=== PATIENT | male | born 1960 | race Caucasian/White ===

== ENCOUNTER 2017-07-02 14:47 | Inpatient (IN) | payer OTHER ==
--- NOTE | 2017-07-02 14:56 | CPEKG ---
Heart Rate: 88 RR Interval: 682 P-R Interval: 188 QRSD Interval: 94 QT Interval: 364 QTC Interval: 441 P [place]: 62 QRS [place]: -36 T Wave [place]: 57 EKG Severity - ABNORMAL ECG - EKG Impression: SINUS ARRHYTHMIA, RATE 73-101 EKG Impression: INFERIOR INFARCT, AGE INDETERMINATE EKG Impression: CONSIDER POSTERIOR WALL INVOLVEMENT Electronically Signed By: Anibal Tate 02-Jul-2017 15:08:19
[2017-07-02] MEDS ORDERED: fentaNYL 100 MCG/2 ML INJ ONE ×2 (15:00→15:28)
[2017-07-02] MEDS ORDERED: NS 1,000 ML IV ONE (15:00)
[2017-07-02] MEDS ORDERED: LIDOCAINE 1% 300 MG/30 ML SDV ONE (15:00)
[2017-07-02] MEDS ORDERED: IOPAMIDOL (ISOVUE-370) 150 ML BTL IV ONE ×2 (15:00→15:27)
[2017-07-02] MEDS ORDERED: MIDAZOLAM 2 MG/2 ML VIAL ONE ×2 (15:00→15:26)
[2017-07-02] MEDS ORDERED: HEPARIN 10,000 UNIT/10 ML MDV ONE (15:01)
[2017-07-02] MEDS ORDERED: BIVALIRUDIN 250 MG/5 ML VIAL IV ONE (15:01)
--- NOTE | 2017-07-02 15:06 | EDPHY ---
H & P Time Seen by Provider: 07/02/17 14:53 HPI/ROS: CHIEF COMPLAINT: Chest pain HISTORY OF PRESENT ILLNESS: 57-year-old for fracture with no previous medical history developed chest pain radiating to his left arm at 1:30 p.m. today while at work. Symptoms mild to moderate not associated with shortness of breath or diaphoresis or vomiting. 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 Not pleuritic or exertional. REVIEW OF SYSTEMS: Eye: no change in vision ENT: no sore throat Cardiac: HPI Pulmonary: no cough or SOB Abdomen: No abdominal pain or vomiting Musculoskeletal: Radiates a little bit to his back Skin: no rash Neuro: no headache, no weakness or numbness in extremities Constitutional: no fever : no urinary symptoms A comprehensive 10 point review of systems is otherwise negative aside from elements mentioned in the history of present illness. PAST MEDICAL HISTORY: Negative Social history: Chiropractor, no smoking General Appearance: Alert and conversant, cooperative. Eyes: No scleral icterus. ENT, Mouth: Normal mucous membranes. Respiratory: Normal respiratory effort, breath sounds equal, lungs are clear to auscultation. Cardiovascular: Regular rate and rhythm. Gastrointestinal: Abdomen is soft and non tender. Neurological: Alert, face symmetric, normal motor and sensory in extremities. Skin: Not diaphoretic Musculoskeletal: No peripheral edema. Psychiatric: Not agitated. Emergency Department course/MDM: Dr. Glover in emergency department, patient made a cardiac alert at 2:56 p.m.. He took oral aspirin at 1:45 p.m., at 324 mg. Directly to cardiac catheterization lab emergently without further diagnostics or therapeutics. Smoking Status: Never smoked Constitutional: Initial Vital Signs Temperature (C) 36.5 C 07/02/17 14:49 Heart Rate 100 07/02/17 14:49 Respiratory Rate 18 07/02/17 14:49 Blood Pressure 169/115 H 07/02/17 14:49 O2 Sat (%) 97 07/02/17 14:49 O2 Delivery Mode Room Air Allergies/Adverse Reactions: No Known Allergies Allergy (Unverified 08/10/14 09:55) Home Medications: Medication Instructions Recorded Tamsulosin HCl [Flomax] 0.4 mg PO DAILY #7 cap 08/10/14 oxyCODONE/APAP 5/325 [Percocet 1 tab PO Q6 #10 tab 08/10/14 5/325] Medical Decision Making - Diagnostics EKG Interpretation: 12-lead EKG interpreted by me; official reading is in trace master. My interpretation is sinus rhythm rate 88 with acute inferior myocardial infarction with reciprocal anterior changes. Differential Diagnosis: Differential diagnosis considered for chest pain including but not limited to myocardial ischemia, aortic dissection, pericarditis, pulmonary embolus, chest wall pain, pleural inflammation and pulmonary infectious causes. Critical Care Time: Critical care time spent by me, Dr. Tate, exclusively with the care of this patient was 15 minutes, exclusive of PA or NURSE INFORMATICS EDUCATOR time and exclusive of separate procedures. The organ system at risk was cardiovascular and I ordered EKG, cardiology consult, cardiac alert; to stabilize the patient and prevent worsening of the patient's condition. Departure - Departure Disposition: To OP Cath/Surgery Clinical Impression: Acute NH Qualifiers: Myocardial infarction ST status: ST elevation myocardial infarction Involved coronary artery: unspecified coronary artery Qualified Code(s): I21.3 - ST elevation (STEMI) myocardial infarction of unspecified site Condition: Serious Referrals: NONE *PRIMARY CARE P,. [Primary Care Provider] - As per Instructions
[2017-07-02 15:12] LABS: PLATELET COUNT 285 10^3/uL (150-400)
[2017-07-02] MEDS ORDERED: NS 1,000 ML IV SCH ×2 (15:15→16:45)
[2017-07-02] MEDS ORDERED: PRASUGREL HCL 10 MG TAB ONE (15:22)
[2017-07-02 15:28] LABS: INR 1.02 (0.83-1.16); PROTIME(PATIENT) 13.6 SEC (12.0-15.0)
--- NOTE | 2017-07-02 15:31 | PDDXCAT ---
Diagnostic Cath Note - . Date: 07/02/17 Pulverizer Tender: Roxanna Indication: other (Cardiac alert, acute anterior MT. ) - Procedure Access: right groin Procedure: left heart catheterization, left ventriculogram - Materials Left Heart Cath size: 6F Left Heart Cath materials: standard multipack (JL4, JR4, pigtail), other (See Intervention comments...) - Findings-Left Heart Catheterization LM: It has a kink on the inferior side maximal luminal narrowing approx 30% best visualized in an MAURITANIAN projection. The left coronary lumen is approx 6mm in size. LAD: 6mm in size. It is also abnormally large with multiple luminal irregularities consistent with underlying atherosceloris. Maximal luminal stenosis is approx 30%. LCX: 4mm in size proximately. It gives rise to 3 small obstuse marginal branches , all of which are diseased at the ostial takeoff from the LCX. The LCX is 100% occluded with BINTA 0 flow. RCA: It is large and patulent and dominant gibing rise to posterior descending artery and PLV branch. There is evidence of right to left collaterals to the left circumflex vessel. EDP: 17mmHg. LVEF: 40% with lateral, distal, and anterior wall apical hypokinesis. On the LV gram there is no significant MR. There appears to be mild mitral valve prolapse which could be related to papillary muscle dysfunction. Complications: None. Estimated blood loss: <50ml Closure method: manual pressure Assessment: The patient presented with an inferior and true posterior STEMI involving a large left circumflex proximal to the main obtuse marginals. The patient was treated with acute infarct angioplasty and stent implantation, with IV Angioma and oral Effient bolus. A single dose of IV lopressor was temoporally related to progression of LAFB to LBBB. further beta blockers will have to be used cautiously if at all. Plan: Dual antiplatelet therapy with Aspirin 325mg for the first month followed by Aspirin 81mg along with Plavix 75mg daily should be continued for at least 1 year following drug eluting stent implantation. No elective surgery for the first 3 months. Decisions to stop dual antiplatelet therapy before 1 year should involve our office at [facility], . The patient will need to be treated with OMAR inhibitors, beta blockers will be used with caution given reno-sparks conduction system disease and left bundle branch block. Intervention: The patient has reno-sparks vessel coronary artery disease with 100% obstruction of the left circumflex with BINTA III flow. A 6 Egyptian EBU 3.75 was used for guide catheter support. An Intuition 0.014 wire was advanced across the lesion in the circumflex under direct fluoroscopic and angiographic guidance. I ballooned the LCX lesion with an Emerge 2.0 x 12mm balloon. Maximal pressure was 6ATM. This reestablished flow in the left circumflex. A Synergy 4.0mm x 8mm drug eluting stent was placed just proximal to a bifurcation of 2 large OM branches. An NC Emerge 4.5mm x 8mm [employer] balloon was used for post dilation. Maximal pressure was 14ATM. BINTA III flow was established distally with no evidence of dissection or significant residual thrombus. 0% residual stenosis post stent placement. Patient Problems: Problems Problem Status Onset Acute [place] Acute
[2017-07-02] MEDS ORDERED: ATROPINE SULFATE 1 MG/10 ML SYR ONE (15:32)
--- NOTE | 2017-07-02 15:33 | PDCONSULT ---
Corporate Strategy Intern Note: CC: chest pains HPI: Patient is a 57 y/o male with fairly unremarkable past medical/cardiovascular history (no CAD, HTN, HLP, or DM), who presented to ER with complaints of chest pains. Symptoms began about 13:00 today, at work, and did not resolve. Given ongoing, progressive discomfort, the patient proceeded to the ER. In the ER, an ECG was performed with ST elevation noted to the inferior leads. Mild nausea was noted. No zach diaphoresis. No PND or orthopnea. Mild dyspnea was noted. No fevers or chills have been noted. No symptoms similar in the past. ASA therapy was taken about 1330 today. Mild radiation to the left posterior arm was also noted. ROS: 12 point review of systems was unremarkable PMHx: No CAD, HTN, HLP, or DM noted PSHx: left shoulder surgery NKDA No outpatient prescribed medications vitals from ER with tachycardia (100 bpm) and hypertension (169/115 mm Hg). RR was 18 with sats on room air at 97%. chest pains were 5/10 at the time of assessment. GEN: diaphoretic with mild pallor SKIN: no rash, no erythema HEENT: NCAT with PERRLA Neck: no JVD noted LUNGS: grossly CTA bilaterally. No crackles noted COR: Tachycardia with regular rhythm. S4 was noted ABD: soft EXT: no edema, 2+ DP/PT/RAD pulses Neuro: no focal deficits were noted Labs: pending ECG: ST elevation to the inferior leads was noted Assessment: Patient is a 57 y/o male with chest pains and ECG consistent with acute inferior myocardial infarction. Plan: Patient was taken urgently to the cardiac laboratory clerk. Risks were discussed. Dr. Johan Mcknight is interventional back up.
[2017-07-02] MEDS ORDERED: NITROGLYCERIN 1,500 MCG/15 ML VIAL MISC ONE (15:38)
[2017-07-02] MEDS ORDERED: FAMOTIDINE 20 MG/NACL/50 ML BAG IV ONE (15:41)
[2017-07-02] MEDS ORDERED: METOPROLOL TARTRATE 5 MG/5 ML INJ ONE (15:53)
--- NOTE | 2017-07-02 15:53 | PDDXCAT ---
Diagnostic Cath Note - . Date: 07/02/17 Demurrage Man: Adalberto Indication: other (ST elevation on ECG in the ER with ongoing chest pains.) - Procedure Access: right groin Procedure: left heart catheterization, coronary angiography - Materials Left Heart Cath size: 6F Left Heart Cath materials: standard multipack (JL4, JR4, pigtail) - Findings-Left Heart Catheterization LM: short (non selective injection) without appreciation of calcification to the left main. The JL4 was likely too long for the patient's anatomy, but visualization of the LM, LAD, and LCX system was noted. LAD: Medium diameter vessel with two principal diagonals noted. Minor luminal irregularities were noted thoughout the LAD system, but no critical stenosis was appreciated. LCX: There was 100% occlusion in the mid portion of the LCX, right after an obtuse marginal vessel. RCA: Large, dominant vessel with supply to the PDA and DYAN vessels. Right to left collaterals to the distal LCX system was noted. EDP: not performed by diagnostic utilization management nurse LVEF: not performed by diagnostic utilization management nurse Wall motion: not performed by diagnostic utilization management nurse Complications: none Assessment: 57 y/o male with AMI to the LCX vessel. Given the identification of this vessel as the culprit vessel, I had interventional cardiology (Dr. Johan Mcknight) proceed with PCI to the LCX prior to LV gram to minimize contrast use in the acute setting. Plan: PCI to the mid LCX Intervention: PCI to the LCX (mid) Patient Problems: Problems Problem Status Onset Acute [place] Acute
[2017-07-02] MEDS ORDERED: TEMAZEPAM 15 MG CAP PO PRN (16:34)
[2017-07-02] MEDS ORDERED: PRASUGREL HCL 10 MG TAB PO ONE (16:34)
[2017-07-02] MEDS ORDERED: ATROPINE SULFATE 1 MG/10 ML SYR IVP PRN (16:34)
[2017-07-02] MEDS ORDERED: OXYCODONE/APAP 5/325 TAB PO PRN (16:34)
[2017-07-02] MEDS ORDERED: ONDANSETRON 4 MG/2 ML VIAL IVP PRN (16:34)
[2017-07-02] MEDS ORDERED: NITROGLYCERIN 0.4 MG BTL SL PRN (16:34)
[2017-07-02] MEDS ORDERED: LORazepam 2 MG/ML INJ IVP PRN (16:34)
[2017-07-02] MEDS ORDERED: HYDROCODONE/APAP 5/325 TAB PO PRN (16:34)
[2017-07-02 18:06] LABS: CREATINE KINASE 378 IU/L (0-224)
--- NOTE | 2017-07-02 19:27 | CPEKG ---
Heart Rate: 77 RR Interval: 779 P-R Interval: 204 QRSD Interval: 156 QT Interval: 456 QTC Interval: 517 P [place]: 60 QRS [place]: -36 T Wave [place]: 153 EKG Severity - ABNORMAL ECG - EKG Impression: SINUS RHYTHM EKG Impression: LEFT BUNDLE BRANCH BLOCK Electronically Signed By: Travis Iverson 03-Jul-2017 06:40:02
--- NOTE | 2017-07-02 19:43 | ASMTCMCOM ---
CM Note CM Note Notes: Patient presented to the ED through triage; patient was driven by his chief information security officer, Suad, after he reported chest pain. Patient emergently went to laborer landscape after EKG showed acute inferior IL. Patient's , Vandana ([phone]) was contacted and met at the ED entrance, and provided information, updates and emotional support until her daughter Saman ([phone]) and her fmaily were able to arrive. 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 Exact needs unknown, CM to follow. Date Signed: 07/02/2017 07:42 PM Electronically Signed By:Chen Munson RN
[2017-07-02 20:37] LABS: CREATINE KINASE 785 IU/L (0-224)
[2017-07-03 00:03] LABS: CREATINE KINASE 1005 IU/L (0-224)
[2017-07-03 02:21] LABS: CREATINE KINASE 941 IU/L (0-224)
[2017-07-03 05:40] LABS: PLATELET COUNT 222 10^3/uL (150-400)
--- NOTE | 2017-07-03 08:40 | CPEKG ---
Heart Rate: 64 RR Interval: 938 P-R Interval: 200 QRSD Interval: 152 QT Interval: 476 QTC Interval: 491 P [place]: 50 QRS [place]: -35 T Wave [place]: 195 EKG Severity - ABNORMAL ECG - EKG Impression: SINUS RHYTHM EKG Impression: LEFT BUNDLE BRANCH BLOCK Electronically Signed By: Travis Iverson 03-Jul-2017 16:18:26
[2017-07-03] MEDS ORDERED: ATORVASTATIN CALCIUM 40 MG TAB PO SCH (09:00)
[2017-07-03] MEDS: PRASUGREL HCL 10 MG TAB PO SCH (10:48)
[2017-07-03] MEDS: ASPIRIN EC 325 MG TAB PO SCH (10:48)
[2017-07-03] MEDS: LISINOPRIL 5 MG TAB PO SCH (10:48)
[2017-07-03 10:54] LABS: CREATINE KINASE 578 IU/L (0-224)
[2017-07-03] MEDS: ROSUVASTATIN CALCIUM 20 MG TAB PO SCH (11:32)
--- NOTE | 2017-07-03 11:54 | PDCARPN ---
Cardiology Progress Note Chief Complaint: No cardiovascular complaints today. No groin tenderness. Multiple family members were present with the patient today. Assessment/Plan: Assessment: 07-03-17 Patient with PCI to LCX occlusion yesterday. Suppression of the LVEF to 40% was also noted. Today, the patient is doing well. No cardiovascular complaints - no chest pains or pressure. No groin tenderness appreciated. Telemetry with PVCs overnight per nursing staff. Therapy on Effient was started post intervention. Peak troponin to about 30 with reduction as of this morning to about 9. 07-02-17 Patient is a 57 y/o male with fairly unremarkable past medical/cardiovascular history (no CAD, HTN, HLP, or DM), who presented to ER with complaints of chest pains. Symptoms began about 13:00 today, at work, and did not resolve. Given ongoing, progressive discomfort, the patient proceeded to the ER. In the ER, an ECG was performed with ST elevation noted to the inferior leads. Mild nausea was noted. No zach diaphoresis. No PND or orthopnea. Mild dyspnea was noted. No fevers or chills have been noted. No symptoms similar in the past. ASA therapy was taken about 1330 today. Mild radiation to the left posterior arm was also noted. Plan: (1) Transfer patient to PCU floor for ongoing telemetry monitoring (2) Would arrange for echocardiogram tomorrow (3) Continue therapy on ASA and Effient for post stent period (one year with lifelong ASA therapy) (4) Statins for HLP elevation that was noted - there has been a switch from Lipitor to Crestor (5) Issues with heart rate suppression and BBB pattern were noted after use of beta blockers jakob-infarction yesterday, and concerns about reintroduction of this therapy (6) ACEi should continue given the suppression of LVEF that has been noted (7) Cardiac rehab to be introduced (8) Will follow this patient overnight with pending discharge in the morning Subjective: No cardiovascular complaints Reviewed/Discussed With: family, multidisciplinary team Objective: Vital Signs (8 Hrs) Temp Pulse Resp BP Pulse Ox 07/03/17 10:48 127/90 H 07/03/17 10:00 88 19 127/90 H 95 07/03/17 08:00 36.7 C 75 10 L 122/84 H 95 07/03/17 06:00 68 18 112/74 94 07/03/17 05:00 65 19 110/70 95 07/03/17 04:00 37.6 C 82 16 118/77 96 Intake/Output (24 Hrs) 07/02/17 07/03/17 07/04/17 05:59 05:59 05:59 Intake Total 2262 Output Total 377 Balance 1885 Intake: Oral (ml) 900 IV Intake (ml) 500 IV Infused (ml) 862 Ns 1,000 ml @ 100 mls/hr 862 IV CONT CHANDLER Rx#: [id number] Output: Urine (ml) 377 Toilet 2 Urinal 375 Other: Weight 84.368 kg Intake Quantity Yes Sufficient Result Diagrams: 07/03/17 05:30 07/03/17 05:30 Cardiac Labs: Cardiac Lab Results (72 Hrs) 07/03/17 07/03/17 07/02/17 09:45 01:35 23:00 CK-MB (CK-2) Fraction 43.10 H 81.40 H 90.90 H Troponin I 9.570 H 26.100 H 30.200 H 07/02/17 07/02/17 19:43 17:00 CK-MB (CK-2) Fraction 64.10 H 22.30 H Troponin I 21.400 H 2.720 H Telemetry: sinus rhythm Echocardiogram: pending tomorrow - Physical Exam Constitutional: WDWN, healthy appearing, no apparent distress Eyes: PERRL, EOMI Ears, Nose, Mouth, Throat: moist mucous membranes Cardiovascular: regular rate and rhythm, no murmurs, no rubs Peripheral Pulses: 2+: dorsalis-pedis (R), dorsalis-pedis (L) Respiratory: clear to auscultate bilat, no crackles, no wheezes Gastrointestinal: normoactive bowel sounds Skin: no rashes, no edema Musculoskeletal: no muscular tenderness Neurologic: AAOx3, CN II-XII grossly intact Psychiatric: cooperative, interactive, following commands ICD10 Worksheet Patient Problems: Problems Problem Status Onset Acute [place] Acute
--- NOTE | 2017-07-03 16:53 | ECHO ---
[email or web address] [address] [address] Main: [phone] Fax: Transthoracic Echocardiogram Name: CORIN HECTOR MR#: [id number] Study Date: 07/03/2017 Study Time: 11:54 AM Date of : 1960 Age: 57 year(s) Height: 177.8 cm (70 in.) Weight: 84.37 kg (186 lb.) BSA: 2.02 m2 Gender: Male Examination: Echo Indication: Post CO, Stent Image Quality: Contrast: Requested by: Horace Glover BP: 135 mmHg/89 mmHg Heart Rate: Rhythm: Indication: Post CO, Stent Procedure Staff Coat Examiner: Patricio Haro Reading Physician: Horace Glover Requesting Provider: Conclusions: Normal size left ventricle. Low normal left ventricular systolic function. EF is 67 %. There is subtle basilar to mid inferolateral hypokinesis.. Normal size right ventricle. The left atrium is normal in size. The right atrium is normal in size. The mitral valve is normal in appearance and function. The aortic valve is tri-leaflet and functions normally. The tricuspid valve is normal in appearance and function. The pulmonic valve is normal in appearance and function. Measurements: Chambers Valvular Assessment AV/MV Valvular Assessment TV/PV Normal Normal Normal Name Value Range Name Value Range Name Value Range Ao Madelin (MM): 3.5 cm (2.2 cm-3.7 AV Vmax: 1.53 m/s (1 m/s-1.7 PV Vmax: 1.13 m/s (0.6 m/s-0.9 cm) m/s) m/s) IVSd (2D): 1.0 cm (0.6 cm-1.1 AV maxP mmHg ( - ) PV PGmax: 5 mmHg ( - ) cm) LVOT Vmax: 0.65 m/s (0.7 m/s-1.1 LVDd (2D): 5.8 cm (4.2 cm-5.9 m/s) cm) MV E Vmax: 0.43 m/s ( - ) LVDs (2D): 3.6 cm (2.1 cm-4 MV A Vmax: 0.65 m/s ( - ) cm) MV E/A: 0.66 ( - ) LVPWd (2D): 1.1 cm (0.6 cm-1 cm) LVEF (2D): 67 (>=54 %) Continued Measurements: Chambers Valvular Assessment AV/MV Patient: CORIN HECTOR Study Date: 07/03/2017 Page 1 of 2 11:54 AM Name Value Name Value LADs Lon.6 cm MV E/E' Septal: 8.20 LA Area: 15.6 cm2 MV E/E' Lateral: 7.30 LA Volume: 37 ml LA Volume Index: 18.3 ml/m2 Findings: Left Ventricle: Normal size left ventricle. Low normal left ventricular systolic function. EF is 67 %. There is subtle basilar to mid inferolateral hypokinesis.. Right Ventricle: Normal size right ventricle. Left Atrium: The left atrium is normal in size. Right Atrium: The right atrium is normal in size. Mitral Valve: The mitral valve is normal in appearance and function. Aortic Valve: The aortic valve is tri-leaflet and functions normally. Tricuspid Valve: The tricuspid valve is normal in appearance and function. Pulmonic Valve: The pulmonic valve is normal in appearance and function. Aorta: The aorta is normal. Pericardium: No pericardial effusion. (No Signature Object) Patient: CORIN HECTOR Study Date: 07/03/2017 Page 2 of 2 11:54 AM [id number]
[2017-07-04 01:16] VITALS: TEMP 98.6
[2017-07-04] MEDS: LISINOPRIL 5 MG TAB PO SCH (08:42)
[2017-07-04] MEDS: ROSUVASTATIN CALCIUM 20 MG TAB PO SCH (08:43)
[2017-07-04] MEDS: ASPIRIN EC 325 MG TAB PO SCH (08:43)
[2017-07-04] MEDS: PRASUGREL HCL 10 MG TAB PO SCH (08:43)
[2017-07-04 08:44] VITALS: BP 98/67; PULSE 73; RESP 15; O2SAT 94
--- NOTE | 2017-07-04 08:46 | CPEKG ---
Heart Rate: 82 RR Interval: 732 P-R Interval: 192 QRSD Interval: 146 QT Interval: 444 QTC Interval: 519 P [place]: 68 QRS [place]: -25 T Wave [place]: 197 EKG Severity - ABNORMAL ECG - EKG Impression: SINUS RHYTHM EKG Impression: LEFT BUNDLE BRANCH BLOCK Electronically Signed By: Travis Iverson 04-Jul-2017 15:21:45
[2017-07-04] MEDS ORDERED: ROSUVASTATIN CALCIUM 20 MG TAB PO SCH (09:00)
--- NOTE | 2017-07-04 10:17 | PDCARPN ---
Cardiology Progress Note Chief Complaint: No cardiovascular complaints today. No events overnight. Assessment/Plan: Assessment: 07-04-17 Patient doing well today. No cardiovascular events overnight. Echocardiogram yesterday with normalization of the overall LVEF, but continued apical hypokinesis was noted. No groin pains. Tolerance of newly added medications has been good. Ambulation in room and into hallway without issues noted/voiced. 07-03-17 Patient with PCI to LCX occlusion yesterday. Suppression of the LVEF to 40% was also noted. Today, the patient is doing well. No cardiovascular complaints - no chest pains or pressure. No groin tenderness appreciated. Telemetry with PVCs overnight per nursing staff. Therapy on Effient was started post intervention. Peak troponin to about 30 with reduction as of this morning to about 9. 07-02-17 Patient is a 57 y/o male with fairly unremarkable past medical/cardiovascular history (no CAD, HTN, HLP, or DM), who presented to ER with complaints of chest pains. Symptoms began about 13:00 today, at work, and did not resolve. Given ongoing, progressive discomfort, the patient proceeded to the ER. In the ER, an ECG was performed with ST elevation noted to the inferior leads. Mild nausea was noted. No zach diaphoresis. No PND or orthopnea. Mild dyspnea was noted. No fevers or chills have been noted. No symptoms similar in the past. ASA therapy was taken about 1330 today. Mild radiation to the left posterior arm was also noted. Plan: (1) Discharge patient to home today (2) ASA and Effient should continue for minimum of one year (3) ACEi therapy should continue for noted reduction in LVEF (4) Statins should continue, and would have reassessment of cholesterol and LFTs in 5 weeks (5) Cardiac rehab needs to be started as soon as possible (6) Would consider beta carrie (low dose) given the events that were noted - aware of the response that was noted, but would emphasize that the response that was noted was in the acute setting. Subjective: No cardiovascular complaints voiced. Reviewed/Discussed With: family, multidisciplinary team Objective: Vital Signs (8 Hrs) Pulse Resp BP Pulse Ox 07/04/17 08:00 73 15 98/67 L 94 07/04/17 04:00 76 21 H 97/67 L 92 Intake/Output (24 Hrs) 07/03/17 07/04/17 07/05/17 05:59 05:59 05:59 Intake Total 2262 1999 Output Total 377 Balance 1885 1999 Intake: Oral (ml) 900 2000 IV Intake (ml) 500 IV Infused (ml) 862 Ns 1,000 ml @ 100 mls/hr 862 IV CONT CHANDLER Rx#: [id number] Output: Urine (ml) 377 Toilet 2 Urinal 375 Other: Weight 84.368 kg Intake Quantity Yes Yes Sufficient Number of Voids Toilet 3 Number of Stools Toilet 1 Result Diagrams: 07/03/17 05:30 07/03/17 05:30 Cardiac Labs: Cardiac Lab Results (72 Hrs) 07/03/17 07/03/17 07/02/17 09:45 01:35 23:00 CK-MB (CK-2) Fraction 43.10 H 81.40 H 90.90 H Troponin I 9.570 H 26.100 H 30.200 H 07/02/17 07/02/17 19:43 17:00 CK-MB (CK-2) Fraction 64.10 H 22.30 H Troponin I 21.400 H 2.720 H EKG: sinus rhythm Telemetry: normal sinus rhythm Echocardiogram: improvement in LVEF was noted with ongoing apical hypokinesis - Physical Exam Constitutional: WDWN, healthy appearing, no apparent distress Eyes: PERRL, EOMI Ears, Nose, Mouth, Throat: moist mucous membranes Cardiovascular: regular rate and rhythm, no murmurs, no rubs, no gallops, pulses symmetric bilat Peripheral Pulses: 2+: dorsalis-pedis (R), dorsalis-pedis (L) Respiratory: clear to auscultate bilat, no crackles, no wheezes Gastrointestinal: normoactive bowel sounds Skin: warm, no edema, No erythema, No rash Musculoskeletal: no muscular tenderness Neurologic: AAOx3, CN II-XII grossly intact Psychiatric: cooperative, interactive, following commands ICD10 Worksheet Patient Problems: Problems Problem Status Onset Acute [place] Acute
== END 2017-07-04 11:00 | disposition home or self-care (01) | DRG 247 ==
LOC: F2N 16:17
PROVIDERS: ADMIT Internal Medicine Cardiovascular Disease; ATTEND Internal Medicine Cardiovascular Disease
DX: I21.11 ST elevation (STEMI) myocardial infarction involving right coronary artery (principal); I25.10 Atherosclerotic heart disease of native coronary artery without angina pectoris; E78.5 Hyperlipidemia, unspecified
CPT/HCPCS: C1725; C1769; C1874; C1887; C9606; J0461; J0583; J1200; J1644; J2250; J3010; Q9967